=== PATIENT | male | born 1960 | race Two or more races ===

== ENCOUNTER 2019-05-09 12:23 | Emergency (ER) | payer OTHER ==
[~2019-05-09] VITALS: Ht 185.4 cm; Wt 127.9 kg
[2019-05-09] MEDS ORDERED: TENORMIN50 M1 (12:29)
== END 2019-05-09 17:46 | disposition home or self-care (01) ==
LOC: ER 12:23
DX: B34.9 Viral infection, unspecified (principal)

== ENCOUNTER → 2022-01-18 | Emergency (ER) | payer OTHER ==
[~2022-01-18] VITALS: Ht 182.9 cm; Wt 129.3 kg
[~2022-01-18] MED LIST: TENORMIN50 M1
== END | disposition home or self-care (01) ==
LOC: ER 09:55
DX: B34.9 Viral infection, unspecified (principal); R53.81 Other malaise; I10 Essential (primary) hypertension

== ENCOUNTER 2022-11-17 12:19 | Emergency (ER) | payer OTHER ==
[~2022-11-17] VITALS: Ht 185.4 cm; Wt 129.7 kg
[2022-11-17] MEDS ORDERED: HYDROCHLOROTH12.5 MG (13:24)
== END 2022-11-17 17:56 | disposition home or self-care (01) ==
LOC: ER 12:19
DX: U07.1 COVID-19 (principal); I10 Essential (primary) hypertension